=== PATIENT | female | born 1960 | race Caucasian/White ===

== ENCOUNTER 2023-10-20 10:16 | Outpatient (REF) | payer MEDICARE, SELFPAY ==
[2023-10-20 10:39] LABS: Basophils Absolute Auto 0.03 K/uL (0.00-0.30); Basophils Percent Auto 0.6 % (0.0-3.0); Eosinophils Absolute Auto 0.06 K/uL (0.00-0.50); Eosinophils Percent Auto 1.1 % (0.0-7.0); Hematocrit 35.5 % (33.0-51.0); Hemoglobin* 11.3 gm/dL (12.0-16.0); Immature Granulocytes Abs Auto 0.01 K/uL (0.00-0.30); Immature Granulocytes Pct Auto 0.2 %; Lymphocytes Absolute Auto 1.54 K/uL (0.90-2.90); Lymphocytes Percent Auto 28.6 % (20-44); Mean Corpuscular HGB Conc 32 gm/dL (32-36); Mean Corpuscular Hemoglobin 26 pg (26-34); Mean Corpuscular Volume 80 fL (80-100); Monocytes Percent Auto 7.8 % (0.0-11.0); Neutrophils Absolute Auto 3.32 K/uL (1.7-7.0); Neutrophils Percent Auto 61.7 % (42.0-72.0); Platelet Count* 401 K/uL (140-440); RDW Coefficient of Variation % 15.2 % (11.5-15.5); Red Blood Count 4.43 m/uL (4.00-5.20); White Blood Count* 5.38 K/uL (4.50-11.00)
[2023-10-20 10:42] LABS: Chloride* 103 mmol/L (96-114); Sodium* 137 mmol/L (135-149)
[2023-10-20 10:44] LABS: Creatinine* 0.8 mg/dL (0.5-1.5); Estimated Glomerular Filt Rate 82 ml/min
[2023-10-20 10:45] LABS: Anion Gap 7 mEq/L (7-15); Blood Urea Nitrogen* 15 mg/dL (7-30); Carbon Dioxide* 27 mmol/L (20-32); Glucose* 81 mg/dL (60-115)
[2023-10-20 10:48] LABS: Slide Review Reflex No
[2023-10-20 14:38] LABS: Free T4 Free Thyroxine* 0.84 ng/dL (0.70-1.85)
[2023-10-20 14:51] LABS: Thyroid Stimulating Hormone* 0.495 uIU/mL (0.270-4.20)
== END 2023-10-20 10:17 | disposition home or self-care (01) ==
LOC: NPINS 10:16
PROVIDERS: Visit Provider Family Medicine
DX: E03.9 Hypothyroidism, unspecified (principal); R06.09 Other forms of dyspnea
CPT/HCPCS: 80048; 80053; 84439; 84443; 84479; 84480; 85025

== ENCOUNTER 2024-01-12 14:13 | Outpatient (CLI) | payer MEDICARE, SELFPAY ==
[2024-01-12 16:13] LABS: Iron* 69 ug/dL (37-170)
[2024-01-12 16:22] LABS: Percent Iron Saturation 18 % (20-50); Total Iron Binding Capacity 377 ug/dL (265-497)
[2024-01-12 17:02] LABS: Vitamin B12* 954 pg/mL (243-894)
== END 2024-01-12 14:14 | disposition home or self-care (01) ==
PROVIDERS: Visit Provider Family Medicine
DX: D64.9 Anemia, unspecified (principal)
CPT/HCPCS: 36415; 82607; 82728; 83540; 83550

== ENCOUNTER 2024-01-14 10:46 | Outpatient (CLI) | payer MEDICARE, SELFPAY | END 2024-01-14 10:47 | disposition home or self-care (01) | LOC: NFLDREF 10:48 | PROVIDERS: Visit Provider Internal Medicine | DX: R07.9 Chest pain, unspecified (principal); R06.02 Shortness of breath | CPT/HCPCS: 80061 ==

== ENCOUNTER 2024-01-27 13:07 | Outpatient (CLI) | payer MEDICARE, SELFPAY | END 2024-01-27 13:08 | disposition home or self-care (01) | PROVIDERS: PCP Family Medicine; Visit Provider Internal Medicine | DX: R06.02 Shortness of breath (principal); I34.0 Nonrheumatic mitral (valve) insufficiency | CPT/HCPCS: 93306 ==

== ENCOUNTER 2024-02-04 13:32 | Outpatient (CLI) | payer MEDICARE, SELFPAY ==
--- NOTE | 2024-02-04 14:56 | P.STN_ITS ---
Stress Test Note Date Date Seen: 02/04/24 Date of test: 02/04/24 Providers Referring provider: Pedrito Chaudhry Primary care provider: Preeti Newman Stress test physician: Gracie Perez Stress Test Note Stress test ordered: Stress Echo Indication for test: Right-sided back pain, shortness of breath/dyspnea on exertion Stress test medicine: None Results discussion: Resting EKG: Sinus rhythm, 62 beats per minute. Right bundle branch block. Resting blood pressure: 134/87 Stress test: Patient was exercised following standard Corey protocol on the treadmill. Just before the end of the 1st stage, patient was in a sinus tachycardia of 120s when she abruptly dropped back into the 70s and 80s, looked to be a sinus rhythm. We did start to see some ventricular ectopy with PVCs. Patient did seem to be significantly dyspneic at that time but was not r equesting termination of the stress test. Blood pressure right around that time was 160/100, she did not become hypotensive. She did seem to be more dyspneic but was stating she could continue exercising. Patient was seeming quite dyspneic and with the ventricular ectopy that we were seen, the drop in the heart rate, I actually made the decision to terminate the exercise. Did see a for beat ventricular tachycardia run and some occasional PVCs up until about 2 minutes of recovery. Patient did appear to have some sinus arrhythmia. Her dyspnea did recover. Her exercise duration was 4 minute 12 seconds achieving 6 Mets. She did have a maximum heart rate of 123 beats per minute which was 93% of a calculated target heart rate of 132. Again, patient's heart rate abruptly dropped back into the 70s and 80s at the end of the 1st stage of exercise. She had a calculated rate pressure product of 11,840 during exercise. There is no definitive ischemic change seen. In early recovery, pulse oximeter was placed and patient was 100% on room air. Did speak with [facility] at [facility] Dr. Luna. Reviewed my findings and description of the stress test. He wondered if there could possibly be sinus note ischemia which prompts her exertional dyspnea. He will let her primary drug counselor know, he will place note in the system for him. Patient is completely stable and asymptomatic at this time. She cannot tell me if she had any chest discomfort or back pain during exercise but her friend who is with her does not feel that she was noting any of this. Impression: Subjectively negative but patient noted to be significantly dyspneic, objectively rhythm change from sinus tachycardia back down to normal sinus rhythm (120's to 70-80's), ventricular ectopy as well as for beat run of ventricular tachycardia. Follow up suggested: They will await further direction from the drug counselor. Patient is advised in the presence of her friend who seems to be a automatic grinder operator to minimize any stressful activity. The idea is to avoid any activity that makes her feel short of breath or dyspneic. We discussed signs and symptoms for return into the ER in the interim. She certainly seems to be in stable condition at this time and is asymptomatic.
[2024-02-04 15:04] VITALS: PULSE 72
== END 2024-02-04 13:33 | disposition home or self-care (01) ==
LOC: STRESS 13:33
PROVIDERS: PCP Family Medicine; Visit Provider Family Medicine
DX: R06.02 Shortness of breath (principal)
CPT/HCPCS: 93016; 93325; 93351

== ENCOUNTER 2024-03-02 10:17 | Outpatient (REF) | payer MEDICARE, SELFPAY ==
[2024-03-02 10:50] LABS: Basophils Absolute Auto 0.05 K/uL (0.00-0.30); Basophils Percent Auto 0.9 % (0.0-3.0); Eosinophils Absolute Auto 0.07 K/uL (0.00-0.50); Eosinophils Percent Auto 1.3 % (0.0-7.0); Hematocrit 37.7 % (33.0-51.0); Hemoglobin* 12.5 gm/dL (12.0-16.0); Immature Granulocytes Abs Auto 0.03 K/uL (0.00-0.30); Immature Granulocytes Pct Auto 0.6 %; Lymphocytes Percent Auto 30.2 % (20-44); Mean Corpuscular HGB Conc 33 gm/dL (32-36); Mean Corpuscular Hemoglobin 28 pg (26-34); Mean Corpuscular Volume 85 fL (80-100); Monocytes Percent Auto 10.4 % (0.0-11.0); Neutrophils Absolute Auto 2.99 K/uL (1.7-7.0); Neutrophils Percent Auto 56.6 % (42.0-72.0); Platelet Count* 316 K/uL (140-440); RDW Coefficient of Variation % 14.8 % (11.5-15.5); Red Blood Count 4.44 m/uL (4.00-5.20); White Blood Count* 5.29 K/uL (4.50-11.00)
[2024-03-02 10:53] LABS: Slide Review Reflex No
[2024-03-02 11:00] LABS: Iron* 78 ug/dL (37-170)
[2024-03-02 11:10] LABS: Percent Iron Saturation 22 % (20-50); Total Iron Binding Capacity 354 ug/dL (265-497)
[2024-03-02 11:33] LABS: Ferritin* 12.7 ng/mL (11.1-264.0)
== END 2024-03-02 10:18 | disposition home or self-care (01) ==
LOC: NPINS 10:17
PROVIDERS: PCP Family Medicine; Visit Provider Family Medicine
DX: D64.9 Anemia, unspecified (principal)
CPT/HCPCS: 82728; 83540; 83550; 85025

== ENCOUNTER 2024-10-18 14:50 | Outpatient (CLI) | payer MEDICARE, SELFPAY | END 2024-10-18 14:51 | disposition home or self-care (01) | PROVIDERS: PCP Family Medicine; Visit Provider Family Medicine | DX: E03.9 Hypothyroidism, unspecified (principal); E55.9 Vitamin D deficiency, unspecified; E78.5 Hyperlipidemia, unspecified | CPT/HCPCS: 80053; 80061; 82306; 84443 ==

== ENCOUNTER 2024-12-05 13:29 | Outpatient (RCR) | payer MEDICARE, SELFPAY | END 2025-04-04 23:59 | disposition home or self-care (01) | PROVIDERS: PCP Family Medicine; Visit Provider Family Medicine | DX: M25.561 Pain in right knee (principal); M25.562 Pain in left knee; G89.29 Other chronic pain; Z51.89 Encounter for other specified aftercare ==

== ENCOUNTER 2025-01-25 14:06 | Outpatient (CLI) | payer MEDICARE, SELFPAY ==
--- NOTE | 2025-01-25 14:40 | CRLHL7_ITS ---
For Patients: As a result of the Century Cures Act, medical imaging exams and procedure reports are released immediately into your electronic medical record. You may view this report before your referring provider. If you have questions, please contact your health care provider. INDICATION: BILATERAL SCREENING MAMMOGRAM, ASYMPTOMATIC 64 Y/O FEMALE COMPARISON: REESTABLISH BASELINE TECHNIQUE: Digital mammogram in CC and MLO projections including computer-aided detection (CAD) and tomosynthesis. BREAST COMPOSITION: There are scattered areas of fibroglandular density. FINDINGS: No suspicious findings. ASSESSMENT: BI-RADS 1 Negative RECOMMENDATION: Annual screening mammogram. A lay language report of this examination will be provided to the patient. Dictated by: Jt Frias MD @ 02/03/2025 10:02:17 (Electronically Signed)
--- NOTE | 2025-01-25 15:00 | CRLHL7_ITS ---
For Patients: As a result of the Century Cures Act, medical imaging exams and procedure reports are released immediately into your electronic medical record. You may view this report before your referring provider. If you have questions, please contact your health care provider. XR DXA Bone Mineral Density (BMD) Reason for exam: Screening for osteoporosis. Current height (in): 67. Weight (lb): 201. Menopause age: 56. Ethnicity: White. 1. Have you had a previous hip or vertebral fracture? No. 2. Have you had any fractures during your adult life which did not result from significant trauma (e.g., auto accident)? No. 3. Did either of your parents have a hip fracture? No. 4. Do you smoke? No. 5. Have you ever taken Glucocorticoids? No. 6. Do you have rheumatoid arthritis? No. 7. Do you have secondary osteoporosis? No. 8. Do you drink 3 or more alcoholic drinks per day? No. 9. Are you being treated for osteoporosis? No. 10. Have you ever taken any of the following medications: Actonel, Evista, Fosamax, Miacalcin, Reclast, Boniva, Forteo, HRT (i.e. estrogen/hormone therapy), Protelos, Prolia, Vitamin D, Calcium, other ??? please specify. ANSWER: Yes, vitamin D, calcium. 11. Do you have any of the following medical conditions: Anorexia or bulimia, asthma or emphysema, end stage renal disease, hyperparathyroidism, any seizure disorders, cancer, inflammatory bowel diseases, hysterectomy, other ??? please specify. ANSWER: Yes, hyperparathyroidism, hysterectomy. 12. What was your maximum height (inches)? 67. 13. Do you perform weight bearing exercise regularly? No. 14. Do you regularly consume dairy products? Yes. 15. Do you drink caffeinated beverages? Yes. 16. At what age did your period start? 12. 17. Are you premenopausal? No. 18. How many full term pregnancies have you had? Zero. 19. Have you ever missed your period for more than 6 months in a row (not including or menopause)? No. TECHNIQUE: Bone mineral density study was performed using the BIOSAFE. FINDINGS: The results of the study expressed as bone mineral density (BMD) are as follows: Lumbar spine L1 to L4: BMD: 1.023 g/cm2. T-score: -0.2. Z-score: 1.7. Neck Left: BMD: 0.653 g/cm2. T-score: -1.8. Z-score: -0.2. Right: BMD: 0.670 g/cm2. T-score: -1.6. Z-score: 0.0. Total Left: BMD: 0.794 g/cm2. T-score: -1.2. Z-score: 0.1. Right: BMD: 0.770 g/cm2. T-score: -1.4. Z-score: -0.1. IMPRESSION: Osteopenia. FRAX 10-year Fracture Risk Major Osteoporotic Fracture: 9.5 percent Hip Fracture: 1.2 percent Reported Risk Factors: [place] () Neck BMD=0.653, BMI=31.5 ASAF VICTOR MD Diagnostic/Nuclear Medicine Radiologist [email or web address] GARRET/дмитрий bM/Dictated by: Asaf Victor MD @ 01/26/2025 1:33:00 PM (Electronically Signed)
== END 2025-01-25 14:07 | disposition home or self-care (01) ==
LOC: MAMMO 14:07
PROVIDERS: PCP Family Medicine; Visit Provider Family Medicine
DX: Z12.31 Encounter for screening mammogram for malignant neoplasm of breast (principal); Z13.820 Encounter for screening for osteoporosis; M85.89 Other specified disorders of bone density and structure, multiple sites; Z78.0 Asymptomatic menopausal state
CPT/HCPCS: 77063; 77067; 77080

== ENCOUNTER 2025-03-21 11:15 | Outpatient (RCR) | payer MEDICARE, SELFPAY ==
--- NOTE | 2025-02-24 15:28 | PT.OPEX ---
PT [place] Outpatient Eval PT [facility] Outpatient Eval Start: 02/23/25 08:48 Freq: Status: Active Protocol: Document 02/23/25 08:49 NLR (Rec: 02/24/25 14:53 NLR [id number]) E-signed By Stefania Blanchard DPT Physical Therapy Outpatient Evaluation Insurance Information Recert Due Date 05/24/25 Insurance Name Medicare B,Blue Cross/Blue Shield Medical Diagnosis M17.0 Bilateral Primary OA of the knee Treating Diagnosis M25.561 Pain in R knee M25.562 Pain in L knee Imaging Report 02/21/25 B Knee Xrays: Show severe/extreme Information patellofemoral osteoarthrosis bilaterally including substantial thinning of the patellae. The medial and lateral tibial femoral compartments show moderate narrowing particularly lateral compartments. Moderate tricompartmental osteophytosis noted. No acute fractures or avulsions or signs of AVN otherwise. Referring MD Georgi Sanchez MD (Evan Lancaster PA-C) Subjective Preferred Name AJ Rocha arrives for PT evaluation for assistance with B knee pain accompanied by her lifelong friend Anayeli. Aj is a resident at assisted living at [facility] for [facility], but she is able to appropriately answer most questions presented to her. Anayeli is able to fill in details where missing. She had 2 PT visits at [facility] last month, but they do not have a multimedia specialist PT and the ability to receive regular care is quite limited. They did some kinesiotaping, had her ride a bike and talked to her minimally about footwear. Pain Comments Difficult to fully assess due to cognitive status - Anayeli reports it was 10/10 before recent cortisone shots . She had cortisone injections about 10 years ago, and then again recently. She reports pain with walking distances, especially on concrete, getting into and out of a chair, kneeling on the kneeler at buddhist and when pushing her feet into the ground to get up. She has had a recommendation for Voltaren, but will need assistance to utilize it where she lives. She has not tried ice or heat. The cortisone shots have been helfpful and pain is medium. Date of Last 02/21/25 Physician Visit Current Work Status Retired Occupation Lives in memory care at [facility]. Frequently walks with her longtime friend Anayeli. Precautions Treatment Dementia Precautions/ Contraindications Therapy Limitations/ Communication Ability,Cognition Systems Review Objective Other/Pertinent HAND DOM: RIGHT Objective ROM: Grossly WFL B STRENGTH: Grossly 4+/5 B except B VMO 4/5 POSTURE: R foot pronation, L foot pronation, R ankle valgus, R knee genuvarus. PALPATION: Patient exhibits tenderness to palpation at mild at medial joint lines. SPECIAL TESTS: B + patellar grind FUNCTIONAL: Patient is able to sit indefinitely. Patient is able to stand indefinitely. Patient is able to walk indefinitely but gets pain with longer walks. Patient is able to go up and down stairs. GAIT: Patient is able to ambulate independently using no gait aid. Patient exhibits no gait abnormalities. FLEXIBILITY: Hypoflexibility noted at iliotibial band, hamstrings. FOOTWEAR: Patient arrives wearing Nike (sometimes wears older Operating Room Technologist that is flat and worn) that does not provide adequate medial arch support. She does not ( unsupportive slipper) wear supportive footwear in the house. OTHER PMH: Early-stage dementia, osteopenia, depression . Assessment Assessment/ Aj is a 64-year-old female who presents for skilled Impression PT evaluation presenting with bilateral knee pain which is consistent with patellofemoral misalignement in the setting of significant pronation R>L with unsupportive footwear, tight IT band and mild VMO weakness. Patient is an appropriate candidate for skilled physical therapy to target deficits described above. Skilled PT intervention is necessary to achieve goals as stated. D /C plan and criteria is for patient to achieve the goals as outlined or until max rehab potential is met. Patient was agreeable with plan of care and goals established. Primary Functional Difficulty walking long distances, difficulty going up Limitations and down stirs, difficulty getting up out of chair with long time sitting. Plan of Care Rehabilitation Good Potential Physical Therapy 1. Patient will be independent with home exercise Goals program as instructed, modified and progressed by physical therapist in order to be independently and actively participating in their rehabilitation and return to prior level of function. Goal to be achieved by 05/25/2025. 2. Patient will demonstrate ability to walk for 60 minutes(s) without significant increase in pain greater than 2/10 to allow patient to be able to safely and independently return to participation in desired level of function with daily activities such grocery shopping , going to appointments, walking for exercise without pain or difficulty. Goal to be achieved by 05/25/2025. 3. Patient will ascend/descend 2 full flight(s) of stairs with [id number] pattern without significant increase in difficulty or pain over 2/10 allowing for safe and independent mobility through their home/work environment. Goal to be achieved by 05/25/2025. Coordination/ Referral Source Communication With Treatment Plan/ Gait Training,Manual Therapy,Neuromuscular Re-ed,Self- Direct Interventions Care/Home Management,Therapeutic Activities,Therapeutic Exercises Frequency/Duration 1X/week for 4-8 weeks Patient Will Be Completion of LTG(s),Skills Plateau,Independent w/HEP, Discharged From Independently Progressing Therapy Discharge Plan DC with HEP Comments Evaluation Billing Untimed Code 30 Treatment Minutes PT Eval No Charge No Complexity Moderate Certification Information Initial 02/24/25 Certification Date Ending Certification 05/25/25 Date Provider Signature Yes Required Provider Signature POC & Medical Necessity Shows Agreement With Physician NPI Number Write NPI# Here Physician Comment/ : Change Physician Signature Please Sign/Date Here & Date Requested
== END 2025-03-21 16:17 | disposition home or self-care (01) ==
PROVIDERS: PCP Family Medicine; Visit Provider Physician Assistant Surgical
DX: M17.0 Bilateral primary osteoarthritis of knee (principal); Z51.89 Encounter for other specified aftercare
CPT/HCPCS: 97110; 97112; 97162

== ENCOUNTER 2025-06-23 12:53 | Emergency (ER) | payer MEDICARE, SELFPAY ==
--- OUTSIDE RECORDS SUMMARY | 2017-10-02 11:54 | XMS_ITS | Continuity of Care Document ---
Author Organization [facility] Address [address] [place] [address] Phone Care Team Providers Care Deputy Coroner Name Role Phone Roxanna SKELTON, Lambda Unavailable Unavailable Allergies, Adverse Reactions, Alerts Substance Reaction Status Criticality Sulfa (Sulfonamide Antibiotics) Rash Active No Information Medications Medication Instructions Dosage Effective Dates (start - stop) Status Comments levothyroxine 200 mcg tablet take 1 tablet by oral route every day 200 MCG - Active Estrace 0.01% (0.1 mg/gram) vaginal cream apply 0.5 (1G) by VAGINAL route 2 times every week 1 G - Active Procedures Procedure Date Renal Ultrasound UA auto w/o micro Office E&m Estab Low-mod BF/PFR - Neuromusclar Reeducation Projected Goal Status BF/PFR - Therap Exer Devl Stngth & BF/PFR - Therap Exer Devl Stngth & BF/PFR - Therap Exer Devl Stngth & BF/PFR - Therap Exer Devl Stngth & Emg Anal/ureth Sphincter-not N 17 BF/PFR - Therap Exer Devl Stngth & Phy Therapy Eval Moderate Complexity Mar Projected Goal Status Prim Func Limitations UA auto w/o micro Postop F/u Vis Norm Incl Global 017 UA auto w/o micro Postop F/u Vis Norm Incl Global 017 UA auto w/o micro Postop F/u Vis Norm Incl [facility] 017 Lap Colpopexy Robotic Technology Used In Surgery UA auto w/o micro Postop F/u Vis Norm Incl [facility] 017 UA auto w/o micro Offic Cons New/estab Mod-hi 60 16 Advance Directives Directive Yes / No Effective Date File Name No Information Encounters Encounter Description Practice Location Reason(s) For Visit Diagnoses Date Provider Providers Copied on Encounter [facility], [address] [place] [address], [id number] , tel: [phone] [facility] No Information 8 Msezane Lambda. [address] [place] [address], [address], [place]. tel: [phone] [facility], [address] [place] [address], [id number] , tel: [phone] [facility] No Information 8 Msezane Gaston. [address] [place] [address], [address], [place]. tel: [phone] Referring Provider: Gaston Mcknight [address] [place] [address], [address]. tel:[phone] Office E&m Estab Low-mod [facility], [address] [place] [address], [id number] , tel: [phone] [facility] Urinary Tract Infection (chief complaint) Other female gential prolaspe (chief complaint) Other female genital prolapseDietary counseling and surveillance 7 Msezane Lambda. [address] [place] [address], [address], [place]. tel: [phone] Referring Provider: Gaston Mcknight [address] [place] [address], [address]. tel:[phone] [facility], [address] [place], [place], [id number] , [place] tel: [phone] [facility] No Information 7 Msezane Lambda. [address] [place] [address], [address], [place]. tel: [phone] Referring Provider: Gaston Mcknight, [address] [place] [address], [address]. tel: [phone] [facility], [address] [place], [place], [id number] , [place] tel: [phone] [facility] No Information 7 Msezane Lambda. [address] [place] [address], [address], [place]. tel: [phone] Referring Provider: Gaston Mcknight, [address] [place] [address], [address]. tel: [phone] [facility], [address] [place], [place], [id number] , [place] tel: [phone] [facility] No Information Msezane Lambda. [address] [place] [address], [address], [place]. tel: [phone] Referring Provider: Gaston Mcknight, [address] [place] [address], [address]. tel: [phone] [facility], [address] [place], [place], [id number] , [place] tel: [phone] [facility] No Information 7 Msezane Lambda. [address] [place] [address], [address], [place]. tel: [phone] Referring Provider: Gaston Mcknight, [address] [place] [address], [address]. tel: [phone] [facility], [address] [place], [place], [id number] , [place] tel: [phone] [facility] No Information 7 Msezane Lambda. [address] [place] [address], [address], [place]. tel: [phone] Referring Provider: Gaston Mcknight, [address] [place] [address], [address]. tel: [phone] [facility], [address] [place] [address], [id number] , [place] tel: [phone] [facility] No Information 7 Msezane Lambda. [address] [place] [address], [address], [place]. tel: [phone] Referring Provider: Gaston Mcknight, [address] [place] [address], [address]. tel: [phone] [facility], [address] [place] [address], [id number] , [place] tel: [phone] [facility] Prolapse (chief complaint) Other specified disorders of urethraOther female genital prolapseUrinary tract infection, site not specified Msezane Lambda. [address] [place] [address], [address], [place]. tel: [phone] Referring Provider: Gaston Mcknight, [address] [place] [address], [address]. tel: [phone] [facility], [address] [place] [address], [id number] , [place] tel: [phone] [facility] Prolapse (chief complaint) Other female genital prolapseDietary counseling and surveillance 7 Msezane Lambda. [address] [place] [address], [address], [place]. tel: [phone] Referring Provider: Gaston Mcknight [address] [place] [address], [address]. tel: [phone] [facility], [address] [place] [address], [id number] , [place] tel: [phone] [facility] Prolapse (chief complaint) Dietary counseling and surveillanceEssentia l (primary) hypertensionOther specified disorders of urethraOther female genital prolapse 7 Msezane Lambda. [address] [place] [address], [address], [place]. tel: [phone] Referring Provider: Gaston Mcknight, [address] [place] [address], [address]. tel:[phone] [facility], [address] [place] [address], [id number] , [place] tel: [phone] [facility]. No Information 7 Msezane Lambda. [address] [place] [address], [address], [place]. tel: [phone] Referring Provider: Gaston Mcknight, [address] [place] [address], [address]. tel:[phone] [facility], [address] [place] [address], [id number] , [place] tel: [phone] [facility] Cystocele (chief complaint) Other female genital prolapseDietary counseling and surveillanceEssentia l (primary) hypertension 7 Msezane Lambda. [address] [place] [address], [address], [place]. tel: [phone] Referring Provider: Gaston Mcknight, [address] [place] [address], [address]. tel:[phone] Offic Cons New/estab Mod-hi 60 [facility], [address] [place] [address], [id number] , [place] tel: [phone] [facility] Prolapse (chief complaint) Other specified disorders of urethraOther female genital prolapse 6 Msezane Lambda. [address] [place] [address], [address], [place]. tel: [phone] Referring Provider: Lula Pritchard, [address] [place], [address]. tel:[phone] Family History Family Member Type Diagnosis Age At Onset mother Problem (finding) Renal Failure mother Problem (finding) Hypertension sister Problem (finding) Migraines mother Problem (finding) Diabetes mother Problem (finding) Thyroid mother Problem (finding) Stroke half brother (p) Problem (finding) Urolithiasis Payers Payer name Insurance type Covered republican ID Donis hoyt(s) BCBS PPO BL [id number] Social History Type Description Quantity Date Captured Comments Sex Female Smoking Status No Information Chief Complaint And Reason For Visit No Information Reason For Referral Reason For Referral No Information Plan Of Treatment Date Type Action Status Patient Education Cystocele: Care Instruc tions completed Patient Education Cystocele: Care Instruc tions completed Patient Education Cystocele: Care Instruc tions completed History Of Present Illness Encounter Date Complaint History Of Prese nt Illness Other female gential prolaspe Th e symptoms are reported as being moderate. Urinary Tract Infection The chin rity of the problem is mild. Pertinent history includes being over 50 and alcohol consumption. Pertinent history does not include diabetes. Associated symptoms include urinary urgency. Pertinent negatives include constipation, urinary frequency, hesitancy and urinary retention. Additional information: Pt complains of stress leakage and back pain. Prolapse The onset was gr adual. It occurs rarely. Severity level is mild. Patient reports no pain. The problem is improving. The patient does not report any of the following neurological symptoms: diabetes. Associated symptoms include incomplete emptying. Additional information: pvr 0. Prolapse The onset was gr adual. It occurs rarely. Severity level is mild. Patient reports no pain. The problem is improving. Patient reports no leakage. The patient does not report any of the following neurological symptoms: diabetes. There are no associated symptoms. Prolapse The onset was gr adual. It occurs rarely. Severity level is mild. The patient reports pain in the abdomen. The problem is improving. Patient reports no leakage. The patient does not report any of the following neurological symptoms: diabetes. Pertinent negatives include constipation, dysuria, fever, urinary frequency and hematuria. Cystocele The onset was gr adual. It occurs daily. Severity level is moderate. Patient reports no pain. The problem is unchanged. Patient reports no leakage. There are no associated symptoms. Prolapse The onset was gr adual. It occurs daily. Severity level is moderate. Patient reports no pain. The problem is unchanged. Patient reports no leakage. Pertinent negatives include constipation, dysuria, fever, urinary frequency and hematuria. Additional information: uterine prolapse. Functional Status Date Functional Assessmen t No Information Instructions Date Instruction Additional Infor traciemiguel a Giving encouragement to exercise Related to Dietary Surveil/general counselor Giving encouragement to exercise Related to Dietary Surveil/general counselor Giving encouragement to exercise Related to Hypertension, Unspecified Giving encouragement to exercise Related to Dietary Surveil/general counselor Giving encouragement to exercise Related to Hypertension, Unspecified Giving encouragement to exercise Related to Dietary Surveil/general counselor Assessments Type Assessment Date No Information Patient Care Teams Name Effective Dates (start - stop) Status Members No Information
[2025-06-23] VITALS (29 sets, daily range): BP systolic 108–145; BP diastolic 57–105; PULSE 35–65; RESP 10–31; TEMP 36.8; O2SAT 94–98; BMI 33.9
--- OUTSIDE RECORDS SUMMARY | 2025-06-23 12:57 | XMS_ITS | Clinical Summary ---
Author Organization [facility] Address [address] [place] [address] Care Team Providers Care Warp Knitter Helper Name Role Phone None Primary Care Provider Unavailabl e Allergies Active Allergy Reactions Criticality Noted Date Comments Sulfa (Sulfonamide Antibiotics) Rash 03/21 Medications donepeziL (ARICEPT) 10 mg tablet Take 10 mg by mouth at bedtime. 4 Active FLUoxetine (PROZAC) 10 mg capsule Take 10 mg by mouth once daily. 4 Active folic acid 1 mg tablet Take 1 mg by mouth once daily. 4 Active memantine (NAMENDA) 10 mg tablet Take 10 mg by mouth two times daily. 4 Active omeprazole (PRILOSEC) 40 mg Delayed-Release capsule Take 40 mg by mouth once daily before a meal. 4 Active cholecalciferol, Vitamin D3, 2,000 unit tablet Take 2,000 units by mouth once daily. 4 Active ascorbic acid, vitamin C, (VITAMIN C) 500 mg tablet Take 500 mg by mouth once daily. 4 Active ferrous sulfate 325 mg delayed release tablet Take 325 mg by mouth once daily with a meal. 4 Active thyroid (PATHOLOGY TRANSCRIPTIONIST Thyroid) 60 mg tablet Take 90 mg by mouth once daily. Active ferrous sulfate, 65 mg elemental, (Iron) tablet Take 325 mg by mouth once daily with a meal. Active atorvastatin (LIPITOR) 20 mg tabletIndications:H yperlipidemia, unspecified hyperlipidemia type Take 1 Tablet (20 mg) by mouth once daily. 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 Gender Identity Not on file Sexual Orientation Not on file Obstetrics History Last Filed Vital Signs Vital Sign Reading Time Taken Comments Blood Pressure 127/80 07/19/2024 11:00 AM CDT Pulse 61 07/19/2024 11:00 AM CDT Temperature - - Respiratory Rate - - Oxygen Saturation 99% 07/19/2024 11:00 AM CDT Inhaled Oxygen Concentration - - Weight 99.3 kg (219 lb) 07/13/2024 3:18 PM CDT Height 170.2 cm (5' 7) 04/11/2024 9:57 AM CDT Body Mass Index 34.3 04/11/2024 9:57 AM CDT Plan of Treatment Health Maintenance Due Date Last Done Comments Tetanus booster 1969 Depression screening for age 12+ 1970 Hepatitis C screening for age 18-79 1976 Colonoscopy through age 75 2003 Lipids for age 45-75 2003 Mammogram for age 45-75 2003 Pneumococcal series for age 50+ (1 of 1 - PCV) 2008 Zoster (shingles) series for age 50+ (1 of 2) 2008 DEXA/DXA scan for age 65+ 2023 BMI (ht and wt on same day) for age 18+ 04/11/2025 04/11/2024 COVID-19 vaccine series (2024- season) 2025 09/08/2022, 08/01/2021, 01/18/2021, Additional history exists Influenza Vaccine (#1) 2025 RSV vaccine for adults or (1 - 1-dose 75+ series) 2033 Hepatitis B series for 19+ Aged Out N o longer eligible based on patient's age to complete this topic Insurance * Guarantor: Radha Skinner Account Type Relation to Patient Date of Phone Billing Address Personal/Family Self 1960 [address] [place] [address] [place] Advance Directives Documents on File Type Date Recorded Patient Mental Health Clinician Expl anation Power of Division Order Analyst 02/18/2024 12:46 PM Care Teams Warp Knitter Helper Relationship Specialty Start Date End Date None . PCP - General 01/07/24
--- OUTSIDE RECORDS SUMMARY | 2025-06-23 12:57 | XMS_ITS | Patient Health Record ---
Author Organization [facility] Address [address] [place] [address] Care Team Providers Care Station Engineer Main Line Name Role Phone YAMILETH CHENG Unavailable Allergies Allergen (clinical drug ingredient) Drug/Non Drug Allergy documented on EMR Reaction Allergy Type Onset Date Status Substance with sulfonamide structure and antibacterial mechanism of action (substance) Sulfa Antibiotics Unknown Drug Allergy Active Reason For Referral No Information Social History Tobacco Use: Social History Observation Description Date Details (start date - stop date) Never Smoker NA - NA Social History Drugs/Alcohol: Social Info Question Answer Notes Alcohol Screen (Audit-C) Did you have a drink containing alcohol in the past year? No Points 0 Interpretation Negative Drugs Have you used drugs other than those for medical reasons in the past 12 months? No Tobacco Use: Social Info Question Answer Notes Tobacco Use/Smoking Are you a nonsmoker Plan Of Treatment Pending Test Test Name Order Date DEXA 10/17/2021 MAMMOGRAM, SCREENING 10/17/2021 Urinalysis 10/17/2021 Insurance Providers Payer Name Payer Address Payer Phone Subscriber Number Group Number Insured Name Patient Relationship to Insured Coverage Start Date Coverage End Date Blue Cross and Blue [facility] [address] [place] [address] [id number] Radha Skinner Self - patient is the insured Medical (General) History Medical History History ICD Code thyroid disease Surgical History Surgery Date(Month/Year) hysterectomy shoulder
--- OUTSIDE RECORDS SUMMARY | 2025-06-23 12:57 | XMS_ITS | Patient Health Record ---
Author Organization .[facility] Address [address] [place] [address] Care Team Providers Care Receiving Operator Name Role Phone Yulia SKELTON, Jt Primary Care Provider WILDER [facility] [phone] Allergies Allergen (clinical drug ingredient) Drug/Non Drug Allergy documented on EMR Reaction Allergy Type Onset Date Status Substance with sulfonamide structure and antibacterial mechanism of action (substance) Sulfa Antibiotics Unknown Drug Allergy Active Reason For Referral No Information Medications Medication SIG (Take, Route, Fr equency, Duration) Notes Start Date End Date Status Azithromycin 250 MG Oral; Duration: 5 Not-Taking Amoxicillin 875 MG Oral; Duration: 7 Not-Taking Omeprazole 40 MG 1 capsule Orally Onc e a day; Duration: 30 day(s) Not-Taking 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[employer] PLASTIC Thyroid 120 MG Oral; Duration: 90 Active Social History Tobacco Use: Social History Observation Description Date Details (start date - stop date) Never Smoker NA - NA Tobacco Use/Smoking Question Answer Notes Are you a nonsmoker Problems Problem Type SNOMED Code ICD Code Onset Dates Problem Status W/U Status Risk Notes Problem Laryngopharyngeal reflux (559993948) Laryngopharyngeal reflux (LPR) (K21.9) Active confirmed Problem Globus sensation (451857848) Globus sensation (F45.8) Active confirmed Problem Tonsillar cyst (797660829) Tonsillar cyst (J35.8) Active confirmed Plan Of Treatment No Information Insurance Providers Payer Name Payer Address Payer Phone Subscriber Number Group Number Insured Name Patient Relationship to Insured Coverage Start Date Coverage End Date PPO Blue Cross and [employer] of [place] [address] [place] [address] [id number] Radha Enrique Self - patient is the insured Medical (General) History Medical History History ICD Code Thyroid Problem Venereal Disease Surgical History Surgery Date(Month/Year) Gallbladder Hysterectomy
--- NOTE | 2025-06-23 13:38 | CRLHL7_ITS ---
For Patients: As a result of the Century Cures Act, medical imaging exams and procedure reports are released immediately into your electronic medical record. You may view this report before your referring provider. If you have questions, please contact your health care provider. Indication: Shortness of breath Technique: Chest 2 views Comparison: None Findings/Impression: Cardiovascular and mediastinum: Heart size and vasculature are normal in caliber and appearance. Mediastinum is within normal limits. Lungs and pleural spaces: No pleural effusion or pneumothorax. Discoid atelectasis left lung base. Calcified granuloma right lung base. Bones and soft tissues: Right upper quadrant surgical clips. Dictated by Jose Medina MD @ 06/23/2025 2:02:26 PM (Electronically Signed)
[2025-06-23 13:56] LABS: Hematocrit* 38.5 % (33.0-51.0); Hemoglobin* 13.1 gm/dL (12.0-16.0); Immature Granulocytes Abs Auto 0.02 K/uL (0.00-0.30); Immature Granulocytes Pct Auto 0.2 %; Mean Corpuscular HGB Conc 34 gm/dL (32-36); Mean Corpuscular Hemoglobin 29 pg (26-34); Mean Corpuscular Volume 86 fL (80-100); RDW Coefficient of Variation % 12.4 % (11.5-15.5); Red Blood Count* 4.48 m/uL (4.00-5.20); White Blood Count* 10.05 K/uL (4.50-11.00)
--- NOTE | 2025-06-23 13:56 | ED.GENADULT ---
HPI - General Adult General Date Seen: 06/23/25 Chief complaint: Arrhythmia/Palpitations Stated complaint: Resting pulse of 37/shortness of breath Time Seen by Provider: 06/23/25 13:15 Source: patient and other (Friend) Mode of arrival: ambulatory Limitations: no limitations History of Present Illness HPI narrative: Patient is a 64-year-old female with a history of early-onset dementia presenting to the emergency department with her friend. Friends able to give most of the history due to the patient's dementia. States she has been a long time close friend to the patient. She states that the patient was giving blood today which she is a regular donor for. While she was there staff noted that the patient on a heart rate in the 30s. They tried to get her to walk around and do something to increase her heart rate but I would not get above 40. Due to this she was told to come and get evaluated. Patient denies any pain nausea or lightheadedness but does report some shortness of breath. Does have a history of shortness of breath but her friend thinks this might have seemed worse. Was hard to get a good history from the patient due to her dementia. Patient has no history of bradycardia that they are aware of. Related Data Home Medications ?Medication ?Instructions ?Recorded ?Confirmed cholecalciferol (vitamin D3) 50 50 mcg PO QDAY 02/18/24 06/23/25 mcg (2,000 unit) capsule donepezil 10 mg tablet 10 mg PO QDAY 02/18/24 06/23/25 ferrous sulfate 325 mg (65 mg 325 mg PO QDAY 02/18/24 06/23/25 iron) tablet (FeroSul) folic acid 1 mg tablet 1 mg PO QDAY 02/18/24 06/23/25 memantine 10 mg tablet 10 mg PO BID 02/18/24 06/23/25 diclofenac sodium 1 % topical gel 2 g topical QID 03/20/25 06/23/25 Previous Rx's ?Medication ?Instructions ?Recorded fluoxetine 10 mg capsule 10 mg PO QDAY #90 caps 10/19/24 omeprazole 40 mg capsule,delayed 40 mg PO QDAY #90 caps 10/19/24 release thyroid (pork) 60 mg tablet (SUPERVISOR REFINING 90 mg (1.5 x 60 mg) PO QDAY #135 10/19/24 Thyroid) tabs calcium carbonate 600 mg PO BID #180 tabs 05/14/25 acetaminophen 500 mg capsule 1,000 mg (2 x 500 mg) PO Q6H PRN 02/21/25 pain #100 caps diclofenac sodium 1 % topical gel 4 g topical QID PRN pain #100 grams 02/21/25 (Voltaren Arthritis Pain) Allergies Allergy/AdvReac Type Severity Reaction Status Date / Time Sulfa (Sulfonamide Allergy Intermediate Hives Verified 06/23/25 15:09 Antibiotics) PFSH PFSH Medical History Osteopenia (01/26/25) ?M85.80 - Other specified disorders of bone density and structure, unspecified site (ICD-10) Obesity (BMI 30-39.9) ?E66.9 - Obesity, unspecified (ICD-10) Chronic GERD ?K21.9 - Gastro-esophageal reflux disease without esophagitis (ICD-10) Dementia (2022) ?F03.90 - Unspecified dementia, unspecified severity, without behavioral disturbance, psychotic disturbance, mood disturbance, and anxiety (ICD-10) Surgical History History of cholecystectomy (2000) ?Z90.49 - Acquired absence of other specified parts of digestive tract (ICD-10) Hx of shoulder surgery (2001) ?Z98.890 - Other specified postprocedural states (ICD-10) H/O: hysterectomy (2004) ?Z90.710 - Acquired absence of both cervix and uterus (ICD-10) Family History Diabetes Mother Brother Cardiac sarcoidosis Sister, Onset Age: 60 End stage renal disease on dialysis Mother Stroke Father, Onset Age: 70 Social History (Reviewed 02/21/25 @ 14:52 by Brandy Naranjo [facility] Narrative: 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 moved from [place]. [place] 4 month [place] exercise 3/ week treadmill 30 min Lifetime nonsmoker Rare alcohol use What is your current living situation?: I presently have a place to live Problems where you live: no known problems In the past 12 months, utilities in danger of being shut off: no In past 12 months, lack of transportation kept you from medical appts, meetings, work, or getting things needed for daily living: no In the past 12 mos, have been you worried that your food would run out before you had money to buy more?: never true In the past 12 mos, the food you bought just didn't last and you didn't have money to buy more?: never true Smoking Status: Never smoker How often do you have a drink containing alcohol: never AUDIT-C Alcohol total score: 0 Non-prescribed substance use: denies use How often does anyone, including family, friends and others, physically hurt you: never How often does anyone, including family, friends and others, insult or talk down to you: never How often does anyone, including family, friends and others, threaten you with harm: never How often does anyone, including family, friends and others, scream or curse at you: never service: No Exam Const: Vital Signs, click to edit/add: Vital Signs - 24 hr 06/23/25 13:11 Temperature 98.2 F Pulse Rate [Pulse Oximeter] 36 L Respiratory Rate 18 Blood Pressure [Ri ght Upper Arm] 145/105 H Pulse Oximetry 97 Oxygen Delivery Me thod Room Air Course Vital Signs Vital signs: Initial Vital Signs Temperature 98.2 F 06/23/25 13:11 Temperature Source Temporal Artery Scan 06/23/25 13:11 Pulse Rate 36 L 06/23/25 13:11 Respiratory Rate 18 06/23/25 13:11 Blood Pressure 145/105 H 06/23/25 13:11 Blood Pressure Mean 118 H 06/23/25 13:11 Pulse Oximetry 97 06/23/25 13:11 Oxygen Delivery Method Room Air 06/23/25 13:11 Vital Signs Temperature 98.2 F 06/23/25 13:11 Pulse Rate 36 L 06/23/25 13:11 Respiratory Rate 18 06/23/25 13:11 Blood Pressure 145/105 H 06/23/25 13:11 Pulse Oximetry 97 06/23/25 13:11 Oxygen Delivery Method Room Air 06/23/25 13:11 Temperature 98.2 F 06/23/25 13:11 Pulse Rate 36 L 06/23/25 13:11 Respiratory Rate 18 06/23/25 13:11 Blood Pressure 145/105 H 06/23/25 13:11 Pulse Oximetry 97 06/23/25 13:11 Oxygen Delivery Method Room Air 06/23/25 13:11 Medical Decision Making MDM Narrative Medical decision making narrative: Patient is 64-year-old female presenting to the emergency department for bradycardia. She is asymptomatic at this time. She does complain about some mild shortness of breath. The differential diagnosis of shortness of breath is broad and includes common etiologies such as COPD, asthma, pneumonia, viral syndrome, etc. More serious etiologies considered include PE, CHF, coronary artery disease, pneumothorax, aortic dissection, aortic aneurysm. Will do a D-dimer to look for signs of PE as she is having this shortness of breath as hard to get a clear story from her. Also do EKG troponins. With the bradycardia will order electrolytes to see if she is having any abnormalities there. Will also do viral swabs. Her heart rate is typically between 59 and 70 based on previous records sent by her assisted living. Lab work returns showing no concerning abnormalities other than having a D-dimer 0.67. This just above the age cut off. Due to that CT will be ordered. Chest x-ray reviewed by myself the radiologist shows no concerning abnormalities. CTA reviewed by myself and the radiologist also showed no concerning abnormalities. There is some mild bronchial wall thickening this could be infection versus inflammatory but she is not really having any respiratory symptoms other than the shortness of breath which does not really seem like it is not much different than normal. While we are waiting for the CTA to return patient converted back into a sinus bradycardia. Her heart rate is now between 53 and 60. She continues to be asymptomatic. At 16:05 I spoke to the on-call sawmill supervisor for [employer] to recommends a Zio patch and cardiology follow-up. The patient and her friend are agreeable to this plan. Lab Data Labs: Lab Results 06/23/25 06/23/25 Range/Units 13:15 13:38 WBC 10.05 (4.50-11.00) K/uL RBC 4.48 (4.00-5.20) m/uL Hgb 13.1 (12.0-16.0) gm/dL Hct 38.5 (33.0-51.0) % MCV 86 (80-100) fL MCH 29 (26-34) pg MCHC 34 (32-36) gm/dL RDW Coeff of Mirza 12.4 (11.5-15.5) % Plt Count 320 (140-440) K/uL Neut % (Auto) 76.7 H (42.0-72.0) % Lymph % (Auto) 17.2 L (20-44) % Garfield % (Auto) 5.0 (0.0-11.0) % Eos % (Auto) 0.5 (0.0-7.0) % Baso % (Auto) 0.4 (0.0-3.0) % Neut # (Auto) 7.70 H (1.7-7.0) K/uL Lymph # (Auto) 1.70 (0.90-2.90) K/uL Garfield # (Auto) 0.50 (0.00-0.90) K/UL Eos # (Auto) 0.05 (0.00-0.50) K/uL Baso # (Auto) 0.04 (0.00-0.30) K/uL Abs Immat Gran (auto) 0.02 (0.00-0.30) K/uL Imm/Tot Granulo (auto) 0.2 % D-Dimer Quant (PE/DVT) 0.67 H (0.00-0.50) ug/ml Sodium 133 L (135-149) mmol/L Potassium 3.9 (3.6-5.1) mmol/L Chloride 103 (96-114) mmol/L Carbon Dioxide 22 (20-32) mmol/L Anion Gap 8 (7-15) mEq/L BUN 15 (7-30) mg/dL Creatinine 1.0 (0.5-1.5) mg/dL Estimated Creat Clear 51.81 Estimated GFR 62 ml/min Glucose 139 H (60-115) mg/dL Calcium 8.7 (8.4-10.6) mg/dL Magnesium 1.9 (1.5-2.6) mg/dL Troponin I < 0.01 (0.01-0.04) ng/mL SARS-CoV-2 (PCR) Negative SARS-CoV-2 (Negative) Influenza Type A (PCR) Negative PCR FLU A (Negative) Influenza Type B (PCR) Negative PCR FLU B (Negative) RSV (PCR) Negative PCR RSV (Negative) Imaging Data Chest x-ray: Attestation: I have reviewed the pertinent imaging results. Radiologist's impression: Cardiovascular and mediastinum: Heart size and vasculature are normal in caliber and appearance. Mediastinum is within normal limits. Lungs and pleural spaces: No pleural effusion or pneumothorax. Discoid atelectasis left lung base. Calcified granuloma right lung base. Bones and soft tissues: Right upper quadrant surgical clips. Dictated by Jose Medina MD @ 06/23/2025 2:02:26 PM CTA chest: Attestation: I have reviewed the pertinent imaging results. Radiologist's impression: 1. No acute pulmonary embolism. 2. Mild bronchial wall thickening with mild scattered areas of distal mucous plugging may represent airways infection or inflammation. Please note that all CT scans at this facility use dose modulation, iterative reconstruction, and/or weight-based dosing when appropriate to reduce radiation dose to as low as reasonably achievable. Dictated by Josr Oconnor MD @ 06/23/2025 3:35:03 PM ECG Data Attestation: I personally reviewed and interpreted this ECG as follows: Prior ECG tracings: available for review Interpretation: Initial EKG at 13:10 shows sinus rhythm with a second-degree AV block and a 2-1 conduction Jeanie, right bundle branch block, no ST or T-wave abnormalities. Previous EKGs on file do not show heart block. Repeat EKG done at 15:55 shows sinus bradycardia rate 53 beats per minute, normal intervals, normal axis, right bundle-branch block, no ST or T-wave abnormalities. This appears more consistent with her previous EKGs. Discharge Plan Discharge Clinical Impression: Bradycardia Patient Disposition: Home, Self-Care Condition: Stable Instructions: Bradycardia (ED) Additional Instructions: Please return to the emergency department immediately for developed chest pain, lightheadedness or feel like you are going to pass out. Where the Zio patch for the next 14 days. I recommend calling your sawmill supervisor on Thursday for evaluation. There likely want to see you in clinic after the 14 days of the Zio patch. Inform them urine emergency department on 06/23/2025 and were told to follow-up. Again please return immediately for any new or worsening symptoms. Prescriptions: No Action donepezil 10 mg tablet 10 mg PO QDAY folic acid 1 mg tablet 1 mg PO QDAY memantine 10 mg tablet 10 mg PO BID cholecalciferol (vitamin D3) 50 mcg (2,000 unit) capsule 50 mcg PO QDAY ferrous sulfate [FeroSul] 325 mg (65 mg iron) tablet 325 mg PO QDAY acetaminophen 500 mg capsule 1,000 mg PO Q6H PRN (Reason: pain) Qty: 100 2RF Rx Instructions: Daily maximum is 4000mg. Do not exceed this amount. diclofenac sodium [Voltaren Arthritis Pain] 1 % gel 4 g topical QID PRN (Reason: pain) Qty: 100 2RF Rx Instructions: apply to knees diclofenac sodium 1 % gel 2 g topical QID Rx Instructions: apply to single elbow, wrist or hand; for hand includes palm/fingers/back of hand fluoxetine 10 mg capsule 10 mg PO QDAY Qty: 90 3RF omeprazole 40 mg capsule,delayed release(DR/EC) 40 mg PO QDAY Qty: 90 3RF thyroid (pork) [SUPERVISOR REFINING Thyroid] 60 mg tablet 90 mg PO QDAY Qty: 135 3RF calcium carbonate 600 mg calcium (1,500 mg) tablet 600 mg PO BID Qty: 180 3RF Follow Up/Referrals: Tere Garcias MD [Primary Care Provider, Family Practice] Stand Alone Forms: MyHealth Info Instructions
[2025-06-23 14:02] LABS: Lymphocytes Absolute Auto 1.70 K/uL (0.90-2.90); Slide Review Reflex No
[2025-06-23 14:13] LABS: Chloride* 103 mmol/L (96-114); Potassium* 3.9 mmol/L (3.6-5.1); Sodium* 133 mmol/L (135-149)
[2025-06-23 14:16] LABS: Anion Gap 8 mEq/L (7-15); Blood Urea Nitrogen* 15 mg/dL (7-30); Calcium* 8.7 mg/dL (8.4-10.6); Carbon Dioxide* 22 mmol/L (20-32); Creatinine* 1.0 mg/dL (0.5-1.5); Est. Creatinine Clearance* 51.81; Estimated Glomerular Filt Rate 62 ml/min; Glucose* 139 mg/dL (60-115)
[2025-06-23 14:20] LABS: D Dimer Quantitative* 0.67 ug/ml (0.00-0.50)
--- NOTE | 2025-06-23 14:27 | CRLHL7_ITS ---
For Patients: As a result of the Century Cures Act, medical imaging exams and procedure reports are released immediately into your electronic medical record. You may view this report before your referring provider. If you have questions, please contact your health care provider. Indication: SOB Technique: CT angiogram of the chest was performed for evaluation of pulmonary embolism. 95 mL of Isovue 370 intravenous contrast was administered. Comparison: 06/23/2025. Findings: CARDIOVASCULAR: Diagnostic quality: Contrast opacification of the pulmonary arterial circulation is adequate for assessment of pulmonary embolism. Study is not significantly limited by respiratory motion artifact. Pulmonary arteries: No filling defects to suggest pulmonary embolism. Not enlarged. Heart: No interventricular septal deviation. Normal in size. Minimal coronary artery calcification. No significant valvular calcification. Pericardium: No pericardial effusion. Thoracic aorta: No significant abnormality. Normal cervical branching. REMAINING CHEST: Medical devices: None. Thyroid: Normal. Lymph nodes: No supraclavicular, axillary, mediastinal, or hilar lymphadenopathy. Calcified right hilar lymph nodes are compatible with prior granulomatous disease. Other mediastinal structures: No significant abnormality. Lung parenchyma: Right lower lobe calcified granuloma. Airways: Mild bronchial wall thickening with mild scattered areas of distal mucous plugging. Pleura: No significant abnormality. Chest wall: No significant abnormality. Upper abdomen: Status post cholecystectomy. Calcified splenic granulomata. Musculoskeletal: Moderate degenerative changes of the visualized spine. Impression: 1. No acute pulmonary embolism. 2. Mild bronchial wall thickening with mild scattered areas of distal mucous plugging may represent airways infection or inflammation. Please note that all CT scans at this facility use dose modulation, iterative reconstruction, and/or weight-based dosing when appropriate to reduce radiation dose to as low as reasonably achievable. Dictated by Josr Oconnor MD @ 06/23/2025 3:35:03 PM (Electronically Signed)
[2025-06-23 14:41] LABS: PCR FLU A Negative PCR FLU A (Negative); PCR FLU B Negative PCR FLU B (Negative); PCR RSV Negative PCR RSV (Negative); SARS PCR* Negative SARS-CoV-2 (Negative)
[2025-06-27 08:41] LABS: TSH With Reflex to FT4* 3.030 uIU/mL (0.270-4.200)
== END 2025-06-23 17:00 | disposition home or self-care (01) ==
PROVIDERS: Emergency Provider Student in an Organized Health Care Education/Training Program; PCP Family Medicine
DX: R00.1 Bradycardia, unspecified (principal)
CPT/HCPCS: 36415; 71046; 71275; 80048; 83735; 84443; 84484; 85025; 85379; 87631; 93005; 99285; Q9967

== ENCOUNTER 2025-06-28 09:36 | Outpatient (CLI) | payer MEDICARE, SELFPAY | END 2025-06-28 09:37 | disposition home or self-care (01) | LOC: AMB 07-13 03:34 | PROVIDERS: PCP Family Medicine; Visit Provider Emergency Medicine | DX: I46.9 Cardiac arrest, cause unspecified (principal) ==